=== PATIENT | female | born 1965 | race Caucasian/White ===

== ENCOUNTER → 2016-12-13 | Outpatient (CLI) | payer BC ==
--- NOTE | 2016-12-14 09:37 | CR ---
EXAMINATION: Lumbar spine HISTORY: Low back pain COMPARISON: None TECHNIQUE: AP and lateral views FINDINGS: There is mild apical scoliosis of the lumbar spine. The vertebral body heights and disc sp aces appear well-maintained. There is likely a hemangioma within the L2 vertebral body. 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 Marginal osteophytes are noted . The SI joints are symmetric. IMPRESSION: Moderate degenerative changes within the lumbar spine without a definite acute finding.
== END | disposition home or self-care (01) ==
LOC: MW.CHFP 15:53
PROVIDERS: ATTEND Nurse Practitioner Family
DX: M54.5 Low back pain (principal); M47.896 Other spondylosis, lumbar region
CPT/HCPCS: 72100; 72100-26

== ENCOUNTER 2018-10-24 12:58 | Day surgery (SDC) | payer BC ==
[~2018-10-24 12:58] MED LIST: Lactated Ringers 1,000 ML IV SCH; Sodium Chloride 0.9% 10 ML Syringe FLUSH PRN; Sodium Chloride 0.9% 2.5 ML Syringe FLUSH PRN
--- NOTE | 2018-10-24 14:18 | PCM.PREANE ---
Preanesthetic Assessment - Anesthesia/Transfusion/Family Hx Anesthesia History: Prior Anesthesia Reaction Type of Anesthesia Reaction: Excessive Nausea/Vomiting Family History of Anesthesia Reaction: No Transfusion History: No Prior Transfusion(s) Intubation History: Unknown - Review of Systems General: No Symptoms Pulmonary: No Symptoms Cardiovascular: No Symptoms Gastrointestinal: No Symptoms, Other (screening colonoscopy) Neurological: No Symptoms Other: Reports: None - Physical Assessment Height: 1.73 m Weight: 109.316 kg ASA Class: 2 Mental Status: Alert & Oriented x3 Airway Class: Mallampati = 2 Dentition: Reports: Normal Dentition, Partial (left lower (back)) Thyro-Mental Finger Breadths: 3 Mouth Opening Finger Breadths: 2 ROM/Head Extension: Full Lungs: Clear to Auscultation, Normal Respiratory Effort Cardiovascular: Regular Rate, Regular Rhythm - Allergies Allergies/Adverse Reactions: Allergies Allergy/AdvReac Type Severity Reaction Status Date / Time Penicillins Allergy Rash Verified 10/19/18 17:08 procaine [From Novocain] Allergy Tachycardia Verified 10/19/18 17:08 wheat Allergy Rash Verified 10/19/18 17:08 - Blood Blood Available: No - Anesthesia Plan Pre-Op Medication Ordered: None - Acknowledgements Anesthesia Type Planned: MAC Pt an Appropriate Candidate for the Planned Anesthesia: Yes Alternatives and Risks of Anesthesia Discussed w Pt/Guardian: Yes Pt/Guardian Understands and Agrees with Anesthesia Plan: Yes PreAnesthesia Questionnaire HEENT History: Reports: Other (See Below) Other HEENT History: wears glasses, has lower permanent dental bridge Cardiovascular History: Reports: Arrhythmia, Other (See Below) Other Cardiovascular History: hx of "palpitations"- no cause found Gastrointestinal History: Reports: Bowel Obstruction, GERD, Hiatal Hernia, Irritable Bowel Syndrome, Other (See Below) Other Gastrointestinal History: hx of bowel obstruction due to adhesions (from Endometriosis) Had Laparoscopy to release adhesions then Colonoscopy to check bowel. Was previously diagnosed with IBS- now thought to have SIBO (Small Intestine Bacterial Overgrowth) Genitourinary History: Reports: None GREASE [employer] TALLOW [employer]ER History: Reports: Endometriosis Other Neuro History: hx of motion sickness (had Scop patch with last surgery) Endocrine/Metabolic History: Reports: Hypothyroidism, Obesity/BMI 30+ - Past Surgical History HEENT Surgical History: Reports: Naso-Sinus Surgery GI Surgical History: Reports: Colonoscopy Female Surgical History: Reports: Hysterectomy, Salpingo-Oophorectomy, Other (See Below) Other Female Surgeries/Procedures: Laparotomy and 2 Laparoscopies for adhesions due to endometriosis - SUBSTANCE USE Smoking Status *Q: Never Smoker Recreational Drug Use History: No - HOME MEDS Home Medications: Home Meds Cholecalciferol (Vitamin D3) [Vitamin D3] 2,000 unit PO DAILY 10/19/18 [History] Cyanocobalamin/Folic Acid [Vitamin I51-Gwyeo Acid] 1 cap PO DAILY 10/19/18 [ History] Estrogen-Testosterone Cream 1 dose TOP DAILY 10/19/18 [History] Levothyroxine [Synthroid] 100 mcg PO QAM 10/19/18 [History] Nystatin 500,000 unit PO TID 10/19/18 [History] Prasterone (DHEA)/Calcium Carb [DHEA] 5 mg PO DAILY 10/19/18 [History] Progesterone,Micronized [Progesterone] 100 mcg PO DAILY 10/19/18 [History] - CURRENT (IN HOUSE) MEDS Current Meds: Current Medications Lactated Ringer's (Ringers, Lactated) 1,000 mls @ 125 mls/hr IV ASDIRECTED VILMA Sodium Chloride (Saline Flush) 10 ml FLUSH ASDIRECTED PRN PRN Reason: Keep Vein Open Sodium Chloride (Saline Flush) 2.5 ml FLUSH ASDIRECTED PRN PRN Reason: Keep Vein Open Sodium Chloride (Saline Flush) 10 ml FLUSH ASDIRECTED PRN PRN Reason: Keep Vein Open Sodium Chloride (Saline Flush) 2.5 ml FLUSH ASDIRECTED PRN PRN Reason: Keep Vein Open
[2018-10-24] MEDS ORDERED: Propofol 200 MG/20 ML SDV ONE ×2 (14:30→15:47)
[2018-10-24] MEDS ORDERED: Lidocaine 2% 5 ML SDV ONE (14:30)
[2018-10-24] MEDS ORDERED: fentaNYL 100 MCG/2 ML SDV ONE (14:30)
--- NOTE | 2018-10-24 15:55 | PCM.OPNOTE ---
- General Post-Op/Procedure Note Date of Surgery/Procedure: 10/24/18 Operative Procedure(s): Colonoscopy Findings: Diverticulosis Pre Op Diagnosis: Screening colonoscopy Post-Op Diagnosis: Diverticulosis Anesthesia Technique: MAC Primary Surgeon: Stephanie Toscano Condition: Good
--- NOTE | 2018-10-24 16:27 | PCM48HPAN ---
Post Anesthesia Note - EVALUATION WITHIN 48HRS OF ANESTHETIC Vital Signs in Normal Range: Yes Patient Participated in Evaluation: Yes Respiratory Function Stable: Yes Airway Patent: Yes Cardiovascular Function Stable: Yes Hydration Status Stable: Yes Pain Control Satisfactory: Yes Nausea and Vomiting Control Satisfactory: Yes Mental Status Recovered: Yes Resp Rate: 12 - COMMENTS/OBSERVATIONS Free Text/Narrative:: no anesthesia problems
--- NOTE | 2018-10-24 18:44 | OR ---
SURGEON: REGINALDO ZHANG MD DATE OF PROCEDURE: 10/24/2018 PREOPERATIVE DIAGNOSIS: Screening colonoscopy. POSTOPERATIVE DIAGNOSIS: Diverticulosis. PROCEDURE PERFORMED: Screening colonoscopy. ANESTHESIA: MAC. INSTRUMENT USED: Olympus colonoscope. EXTENT OF EXAM: To the cecum. PREPARATION: Good. LIMITATIONS: None. INDICATION FOR EXAMINATION: The patient is a 53-year-old female who presents for screening colonoscopy. I explained the procedure, expected perioperative course, and risks including bleeding, infection, or damage to surrounding structures including perforation. The patient verbalized understanding and wishes to proceed. PROCEDURE IN DETAIL: The patient was brought to the endoscopy suite and placed in the left lateral decubitus position. A time-out was completed verifying the patient's name, age, date of , allergies, and procedure to be performed. Monitored anesthesia care was induced and continuous oxygen was provided via nasal cannula throughout the procedure. After adequate sedation was achieved, a digital rectal exam was performed. This exam was within normal limits. A well-lubricated colonoscope was inserted into the rectum and advanced under direct visualization to the level of the cecum. The cecum was identified by both visual and anatomic landmarks. A photograph was taken of the cecal cap as well as with the scope retroflexed within the cecum. Scope was then fully withdrawn while examining the color, texture, anatomy, and integrity of the mucosa from the cecum to the anal canal. The patient was noted to have diverticulosis throughout the sigmoid colon. The scope was then brought into the rectum and retroflexed to allow visualization of the anal canal opening. This appeared normal and a photograph was taken. The scope was then straightened out and fully withdrawn. The cecum to anus time was 6 minutes. The patient tolerated the procedure well and was taken to PACU in stable condition. ENDOSCOPIC DIAGNOSIS: Diverticulosis. RECOMMENDATIONS: Follow up in clinic in 2 weeks. HANK GHOSH /[id number]
== END 2018-10-24 16:35 | disposition home or self-care (01) ==
LOC: MW.SDS 12:58
PROVIDERS: ATTEND Surgery
DX: Z12.11 Encounter for screening for malignant neoplasm of colon (principal); K57.30 Diverticulosis of large intestine without perforation or abscess without bleeding; E66.9 Obesity, unspecified; Z68.36 Body mass index [BMI] 36.0-36.9, adult; E03.9 Hypothyroidism, unspecified; Z86.010 Personal history of colon polyps; Z79.890 Hormone replacement therapy; Z88.4 Allergy status to anesthetic agent; Z88.0 Allergy status to penicillin; Z91.018 Allergy to other foods
CPT/HCPCS: 45378; J2001; J2704; J3010; J7120